=== PATIENT | female | born 1995 | race Caucasian/White ===

== ENCOUNTER 2019-04-24 15:17 | Inpatient (IN) | payer OTHER ==
[~2019-04-24] VITALS: Ht 152.4 cm; Wt 68.5 kg
[2019-04-24] MEDS ORDERED: RINGERS SOLUTION,LACTATED 1,000 ML IV PRN (15:35)
[2019-04-24] MEDS ORDERED: OXYTOCIN 30 UNITS/LACT RINGERS 500 ML IV ONE (15:35)
[2019-04-24] MEDS ORDERED: PREN1TAB80 PO (15:41)
[2019-04-24] MEDS ORDERED: CITRIC ACID/SODIUM CITRATE 30 ML SOLUTION UDCUP PO PRN (15:45)
[2019-04-24] MEDS ORDERED: METOCLOPRAMIDE HCL 5 MG/ML 2 ML VIAL IVP PRN (15:45)
[2019-04-24 16:05] LABS: BASOPHILS % (AUTO) 0.4 % (0.0-2.0); EOSINOPHILS % (AUTO) 0.8 % (1.0-6.0); HEMATOCRIT 37.2 % (36-46); HEMOGLOBIN 12.5 g/dL (12.0-16.0); LYMPHOCYTES # (AUTO) 1.6 K/uL (1.0-4.8); LYMPHOCYTES % (AUTO) 17.8 % (22.0-44.0); MEAN CORPUSCULAR HEMOGLOBIN 31.3 pg (26.0-34.0); MEAN CORPUSCULAR HGB CONC 33.7 G/dL (31.0-37.0); MEAN CORPUSCULAR VOLUME 93 fL (80-100); MONOCYTES # (AUTO) 0.7 K/uL (0.1-1.0); MONOCYTES % (AUTO) 7.7 % (2.0-9.0); NEUTROPHILS # (AUTO) 6.7 K/uL (1.8-7.7); NEUTROPHILS % (AUTO) 73.3 % (40.0-70.0); PLATELET COUNT (AUTO) 197 K/uL (150-450); RED BLOOD CELL COUNT(AUTO) 4.01 MIL/uL (4.00-5.20); RED CELL DISTRIBUTION WIDTH 13.7 % (11.5-14.5)
[2019-04-24] MEDS: RINGERS SOLUTION,LACTATED 1,000 ML IV SCH ×2 (16:31→16:35)
[2019-04-24] MEDS ORDERED: DINOPROSTONE 10 MG VAGINAL SUPPOSITORY VG ONE (17:00)
[2019-04-24] MEDS ORDERED: AMPICILLIN SODIUM 2 GM/NS 100 ML IV ONE (17:00)
[2019-04-24 17:15] VITALS: BP 109/63
[2019-04-24] MEDS: FentaNYL CITRATE-PF 100 MCG/2 ML VIAL IVP PRN ×3 (19:45→22:56)
[2019-04-24] MEDS ORDERED: OXYGEN THERAPY IH SCH (20:00)
[2019-04-24] MEDS: AMPICILLIN SODIUM 1 GM/NS 50 ML IV SCH (21:03)
[2019-04-25] MEDS: RINGERS SOLUTION,LACTATED 1,000 ML IV SCH ×4 (01:09→17:54)
[2019-04-25] MEDS: AMPICILLIN SODIUM 1 GM/NS 50 ML IV SCH ×5 (01:09→17:53)
[2019-04-25] MEDS ORDERED: -PHARMACY NOTE- MISC ONE (05:00)
[2019-04-25] MEDS ORDERED: MISOPROSTOL 25 MCG TABLET VG ONE (06:45)
[2019-04-25] MEDS ORDERED: ROPIVACAINE HCL/PF 0.2% 100 ML ED ONE (10:54)
[2019-04-25] MEDS ORDERED: MISOPROSTOL 25 MCG TABLET VG SCH (11:30)
[2019-04-25] MEDS ORDERED: ROPIVACAINE HCL/PF 0.2% 100 ML ED PRN (11:35)
[2019-04-25] MEDS ORDERED: ONDANSETRON HCL 4 MG/2 ML VIAL IVP PRN (11:45)
[2019-04-25] MEDS ORDERED: OXYTOCIN 30 UNITS/LACT RINGERS 500 ML IV PRN (11:58)
[2019-04-25] MEDS ORDERED: OXYTOCIN 30 UNITS/LACT RINGERS 500 ML IV ONE (12:01)
[2019-04-25] MEDS ORDERED: ACETAMINOPHEN/CODEINE 300-30 MG TABLET PO PRN ×2 (22:00)
[2019-04-25] MEDS ORDERED: GLYCERIN/WITCH HAZEL LEAF 40 PADS JAR TP PRN (22:00)
[2019-04-25] MEDS ORDERED: LANOLIN 7 GM OINTMENT TP PRN (22:00)
[2019-04-25] MEDS ORDERED: BENZOCAINE 20%/MENTHOL 56 GM SPRAY CANISTER TP PRN (22:00)
[2019-04-25] MEDS: IBUPROFEN 800 MG TABLET PO SCH (22:27)
[2019-04-26] MEDS: IBUPROFEN 800 MG TABLET PO SCH ×4 (04:33→23:00)
[2019-04-26] MEDS: MAGNESIUM HYDROXIDE SUSPENSION 30 ML UDCUP PO SCH ×2 (08:18→21:27)
[2019-04-27] MEDS: IBUPROFEN 800 MG TABLET PO SCH ×2 (05:00→11:00)
[2019-04-27] MEDS: MAGNESIUM HYDROXIDE SUSPENSION 30 ML UDCUP PO SCH (08:39)
[2019-04-27] MEDS ORDERED: IBUP-2071 PO (12:58)
[2019-04-27] MEDS ORDERED: SENNA/DOCUSATE SODIUM 8.6-50 MG TABLET PO ONE (13:15)
== END 2019-04-27 14:00 | disposition home or self-care (01) | DRG 560 ==
LOC: 4S 15:17 → UNDOADMOB 15:17 → 4S 15:30 → OBSVTOIN 15:30
PROVIDERS: ADMIT Obstetrics & Gynecology; ATTEND Obstetrics & Gynecology
PROC: 10E0XZZ Delivery of Products of Conception, External Approach (ICD-10-PCS; principal; 2019-04-25)
PROC: 10907ZC Drainage of Amniotic Fluid, Therapeutic from Products of Conception, Via Natural or Artificial Opening (ICD-10-PCS; 2019-04-25)
PROC: 3E0R3BZ Introduction of Anesthetic Agent into Spinal Canal, Percutaneous Approach (ICD-10-PCS; 2019-04-25)
PROC: 00HU33Z Insertion of Infusion Device into Spinal Canal, Percutaneous Approach (ICD-10-PCS; 2019-04-25)
DX: O99.824 Streptococcus B carrier state complicating childbirth (principal); Z37.0 Single live birth; Z3A.39 39 weeks gestation of pregnancy
CPT/HCPCS: 86850; 86900; 86901; J0290; J2405; J2590; J2795; J3010; J7120